=== PATIENT | male | born 2000 | race Asian ===

== ENCOUNTER 2021-04-15 16:31 | Inpatient (IN) ==
[2021-04-15 17:47] LABS: Hemoglobin 17.3 g/dL (14.0-18.0); Mean Corpuscular Hemoglobin 32.3 pg (25-34); Mean Corpuscular Hgb Conc 37.6 g/dL (32-36); Mean Corpuscular Volume 85.8 fL (80-100); Platelet Count 261 K/uL (130-400); RDW Coefficient of Variation 12.5 % (11.5-14.5); RDW Standard Deviation 38.9 fL (36.4-46.3); Red Blood Count 5.36 M/uL (4.7-6.1); White Blood Count 6.59 K/uL (4.8-10.8)
[2021-04-15 18:38] LABS: Appearance Urine Clear (Clear); Bacteria Urine Automated Negative (Negative); Bilirubin Urine Negative (Negative); Blood Urine 1+ (Negative); Color Urine Yellow; Epithelial Cell Urine Auto 0-5 /lpf (0-5); Glucose Urine UA 3+ (Negative); Ketones Urine 4+ (Negative); Leukocyte Esterase Urine Negative (Negative); Nitrite Urine Negative (Negative); Protein Urine 1+ (Negative); RBC Urine Automated 0-4 /hpf (0-4); Specific Gravity Urine 1.039 (1.000-1.030); Urobilinogen Urine Negative (Negative); WBC Urine Automated 0 /hpf (0-5)
[2021-04-15 18:55] LABS: Basophils # (auto) 0.03 K/uL (0-0.2); Basophils % (auto) 0.5 %; Eosinophils # (auto) 0.12 K/uL (0-0.5); Eosinophils % (auto) 1.8 %; Immature Granulocytes # (auto) 0.05 K/uL (0.00-0.02); Immature Granulocytes % (auto) 0.8 %; Lymphocytes # (auto) 3.31 K/uL (1.2-3.4); Lymphocytes % (auto) 50.2 %; Monocytes # (auto) 0.22 K/uL (0.11-0.59); Monocytes % (auto) 3.3 %; Neutrophils # (auto) 2.86 K/uL (1.4-6.5); Neutrophils % (auto) 43.4 %
[2021-04-15 19:17] LABS: Basophils # (auto) 0.04 K/uL (0-0.2); Basophils % (auto) 0.6 %; Eosinophils # (auto) 0.12 K/uL (0-0.5); Eosinophils % (auto) 1.9 %; Hemoglobin 16.5 g/dL (14.0-18.0); Immature Granulocytes # (auto) 0.05 K/uL (0.00-0.02); Immature Granulocytes % (auto) 0.8 %; Lymphocytes # (auto) 3.04 K/uL (1.2-3.4); Lymphocytes % (auto) 48.6 %; Mean Corpuscular Hemoglobin 32.5 pg (25-34); Mean Corpuscular Hgb Conc 37.5 g/dL (32-36); Mean Corpuscular Volume 86.6 fL (80-100); Mean Platelet Volume 11.3 fL (7.4-10.4); Monocytes # (auto) 0.32 K/uL (0.11-0.59); Monocytes % (auto) 5.1 %; Neutrophils # (auto) 2.69 K/uL (1.4-6.5); Nucleated RBC # (auto) 0.11 K/uL (0-0); Nucleated RBC % (auto) 1.8 %; Platelet Count 224 K/uL (130-400); RDW Coefficient of Variation 12.4 % (11.5-14.5); RDW Standard Deviation 39.2 fL (36.4-46.3); Red Blood Count 5.08 M/uL (4.7-6.1); White Blood Count 6.26 K/uL (4.8-10.8)
[2021-04-15 19:27] LABS: Base Excess VBG -7.9 mEq/L; Oxygen Saturation VBG 88.4 %; pH VBG 7.34 (7.36-7.41)
[2021-04-15 20:10] LABS: Alanine Aminotransferase 99 U/L (12-78); Albumin Globulin Ratio 0.8 (0.9-2); Albumin Level 3.4 gm/dl (3.4-5.0); Alkaline Phosphatase 84 U/L (45-117); Bilirubin,Total 0.8 mg/dl (0.2-1); Blood Urea Nitrogen 16 mg/dl (7-18); Calcium 8.6 mg/dl (8.5-10.1); Carbon Dioxide 15 mmol/L (21-32); Chloride 102 mmol/L (98-107); Chol HDL Ratio 6; Creatinine Clr Calc Pharmacy 169.9 ml/min; Est GFR (African American) 124.8 ml/min; Est GFR (Non-African American) 107.7 ml/min; Globulin 4.3 gm/dl (2.5-4.0); Glucose 367 mg/dl (70-99); HDL Cholesterol 14 mg/dl; Lipase 85 U/L (73-393); Sodium 139 mmol/L (136-145); Total Protein 7.7 gm/dl (6.4-8.2)
[2021-04-15 20:15] LABS: Triglycerides > 1000 mg/dl (0-150)
[2021-04-15 20:17] LABS: BUN Creatinine Ratio 15.9 (10-20)
[2021-04-15] MEDS ORDERED: GLUCOSE 10 TABS/TUBE PO PRN (20:21)
[2021-04-15] MEDS ORDERED: CARBOHYDRATES FOR HYPOGLYCEMIA PO PRN (20:21)
[2021-04-15] MEDS ORDERED: STAT IV Infusion **Titration per Protocol STA ×3 (20:21→21:27)
[2021-04-15] MEDS ORDERED: GLUCAGON FOR INJ 1 MG VIAL SQ PRN (20:21)
[2021-04-15] MEDS ORDERED: DEXTROSE 50% 50 ML SYRINGE IV PRN (20:21)
[2021-04-15] MEDS ORDERED: GLUCOSE 40% GEL 15 GM TUBE PO PRN (20:21)
[2021-04-15 20:58] LABS: iSTAT Creatinine 0.8 mg/dl (0.6-1.3); iSTAT Hemoglobin 16.3 g/dl (14.0-18.0); iSTAT Ionized Calcium 1.14 mmol/l (1.12-1.32)
[2021-04-15] MEDS ORDERED: INSULIN ASPART 100 UNITS/ML 3 ML PEN SC SCH (21:00)
[2021-04-15] MEDS ORDERED: POTASSIUM CHLORIDE 40 MEQ in SODIUM CHLORIDE 0.9% 1000ML 1,000 ML IV SCH (21:00)
--- NOTE | 2021-04-15 21:28 | History & Physical Report ---
Date of Service April 15, 2021 Assessment & Plan (1) Diabetes: Plan: Patient reports two weeks of polyuria/polydipsia/weakness/fatigue and unintentional weight loss. Also with blurry vision today. Elevated blood glucose on arrival to 491 with AGMA - Gap of 22, pH 7.34, HCO3=15 Serum Nbeunaluiu=773 4+ ketones present in urine Beta-hydroxybutyric acid unable to be resulted Presentation and laboratory findings most consistent with new onset DM and DKA -Admit to medical with telemetry -Insulin gtt per protocol with goal blood sugar 150-200 -IVF with 1/2 NSS, supplemental sugar and potassium as needed -Trend BMP, Mg, PO4 and VBG q 4 hours -Check HgbA1C -Diabetes education consultation appreciated (2) Hypertriglyceridemia: Plan: Triglycerides >1000. Blood specimen lipemic, some labs unable to be resulted. Possibly secondary to underlying diabetes -Will check TSH to assess for underlying thyroid disorder contributing to hyperlipidemia -UA with 1+ protein - will check random urine protein and creatinine to assess for degree of proteinuria - ?nephrotic syndrome in setting of hypertriglyceridemia -Repeat lipid panel ordered for AM - LDL to guide initiation of statin therapy -Encourage lifestyle modification - diet, exercise, weight loss and restriction of dietary fat Plan: F/E/N - IVF per DKA protocol - 1/2NSS at 200mL/hr, monitor BMP/Mg/PO4 and VBG q 4 hours, NPO for now Ppx - SCDs Code - Full per discussion with patient Dispo - Admit to medical with telemetry History of Present Illness Chief Complaint: DKA Primary Care Provider: NO PCP Katelin Goldsmith is a 21yo male with no significant past medical history presenting with DM, hypertriglyceridemia. Patient reports that over the last 2 weeks he has been very thirsty - drinking over 5L of water per day. He has been urinating more as well - reports waking 4-5 times per night to urinate. He has also had some early satiety, nausea, alteration in taste sensation, weakness, fatigue and unintentional weight loss of 12#. He also reports some blurry vision today. Patient denies fever, chills, headache, neck pain, chest pain, palpitations, cough, SOB, abdominal pain. He had diarrhea x 2 days earlier in the week which has resolved. Patient states that he had some testing done recently while home in [place] and was told that he had fatty infiltration of the liver. ER Course - Insulin gtt, KCl 40mEq x 2 Allergies Allergy/AdvReac Type Severity Reaction Status Date / Time shrimp Allergy Severe SHORT OF Verified 04/15/21 18:48 BREATH, HIVES Home Medications Medication Instructions Recorded Confirmed Type No Known Home Medications 04/15/21 04/15/21 History Past Med/Surg History Medical History (Updated 04/16/21 @ 03:25 by Jaci Palomino DO) No pertinent family history No pertinent past medical history Surgical History (Updated 04/15/21 @ 22:46 by Melchor Narvaez) No pertinent past surgical history Social History (Updated 04/16/21 @ 03:17 by Jaci Palomino DO) Smoking Status: Never smoker Hx Alcohol Use: No Hx Substance Use: No current occupational status: student Feels Safe at Home: Yes Review of Systems Review of Systems: All systems reviewed & are unremarkable except as noted in HPI & below Physical Exam Physical Exam: General: patient resting comfortably, NAD, non-toxic in appearance, AA&O x 4 Skin: warm, dry, intact, no rashes or lesions HEENT: NC/AT, PERRL, EOMI, anicteric sclera, conjunctiva without injection, external ear normal to inspection and nontender, nares patent, dry mucus membranes, dentition intact, no oropharyngeal lesions, neck supple, trachea midline, no LAD, no thyromegaly, no JVD Heart: +S1/S2, regular, tachycardic, no m/r/g Lungs: equal air entry bilaterally, no rales/rhonchi/wheezes Abd: +BS, soft, NT/ND, no masses/organomegaly/ascites Ext: warm, 2+ pulses in UE/LE bilaterally, no clubbing/cyanosis or edema Neuro: nonfocal, patient AA&O x 4, speech intact, no facial droop, moving all extremities on command with equal strength 5/5 Results & Data Results & Data ([facility]) Vital Signs (Past 12 Hours) Vital Signs Temp Pulse Pulse Resp BP BP Pulse Ox 04/15/21 20:57 106 H 17 138/99 98 04/15/21 18:08 114 H 18 167/105 H 96 04/15/21 17:03 36.0 C L 112 H 20 168/115 H 99 Laboratory Results Laboratory Results WBC 6.26 K/uL (4.8-10.8) 04/15/21 18:56 RBC 5.08 M/uL (4.7-6.1) 04/15/21 18:56 Hgb 16.5 g/dL (14.0-18.0) 04/15/21 18:56 POC Hgb 16.3 g/dl (14.0-18.0) 04/15/21 20:42 Hct 44.0 % (42-52) 04/15/21 18:56 POC Hct 48 % (42-52) 04/15/21 20:42 MCV 86.6 fL (80-100) 04/15/21 18:56 MCH 32.5 pg (25-34) 04/15/21 18:56 MCHC 37.5 g/dL (32-36) H 04/15/21 18:56 RDW Std Deviation 39.2 fL (36.4-46.3) 04/15/21 18:56 RDW Coeff of Kevin 12.4 % (11.5-14.5) 04/15/21 18:56 Plt Count 224 K/uL (130-400) 04/15/21 18:56 MPV 11.3 fL (7.4-10.4) H 04/15/21 18:56 Immature Gran % (Auto) 0.8 % 04/15/21 18:56 Neut % (Auto) 43.0 % 04/15/21 18:56 Lymph % (Auto) 48.6 % 04/15/21 18:56 [place] % (Auto) 5.1 % 04/15/21 18:56 Eos % (Auto) 1.9 % 04/15/21 18:56 Baso % (Auto) 0.6 % 04/15/21 18:56 Neut # (Auto) 2.69 K/uL (1.4-6.5) 04/15/21 18:56 Lymph # (Auto) 3.04 K/uL (1.2-3.4) 04/15/21 18:56 [place] # (Auto) 0.32 K/uL (0.11-0.59) 04/15/21 18:56 Eos # (Auto) 0.12 K/uL (0-0.5) 04/15/21 18:56 Baso # (Auto) 0.04 K/uL (0-0.2) 04/15/21 18:56 Immature Gran # (Auto) 0.05 K/uL (0.00-0.02) H 04/15/21 18:56 Absolute Nucleated RBC 0.11 K/uL (0-0) H 04/15/21 18:56 Nucleated RBC % (auto) 1.8 % 04/15/21 18:56 PT Cancelled 04/15/21 17:27 INR Cancelled 04/15/21 17:27 APTT Cancelled 04/15/21 17:27 PTT Ratio Cancelled 04/15/21 17:27 VBG pH 7.35 (7.36-7.41) L 04/16/21 00:25 VBG pCO2 31 mmHg (38-50) L 04/15/21 18:56 VBG pO2 55 mmHg 04/15/21 18:56 VBG HCO3 16 mmol/L 04/15/21 18:56 VBG O2 Saturation 88.4 % 04/15/21 18:56 VBG Base Excess -7.9 mEq/L 04/15/21 18:56 Barometric Pressure 734.2 mm/Hg 04/15/21 18:56 POC Sodium 137 mmol/L (135-144) 04/15/21 20:42 Sodium 138 mmol/L (136-145) 04/16/21 00:20 POC Potassium 4.0 mmol/L (3.3-5.0) 04/15/21 20:42 Potassium 3.4 mmol/L (3.5-5.1) L 04/16/21 00:20 POC Chloride 106 mmol/L (101-112) 04/15/21 20:42 Chloride 108 mmol/L (98-107) H 04/16/21 00:20 Carbon Dioxide 17 mmol/L (21-32) L 04/16/21 00:20 POC Total CO2 18 mmol/L (24-31) L 04/15/21 20:42 Anion Gap 13.0 (3-11) H 04/16/21 00:20 POC Anion Gap 18.0 mmol/L (16-25) 04/15/21 20:42 POC BUN 20 mg/dl (7-18) H 04/15/21 20:42 BUN 14 mg/dl (7-18) 04/16/21 00:20 Creatinine 1.03 mg/dl (0.6-1.4) 04/16/21 00:20 POC Creatinine 0.8 mg/dl (0.6-1.3) 04/15/21 20:42 Est Cr Clr Drug Dosing 163.3 ml/min 04/16/21 00:20 Est GFR ( Amer) 119.0 ml/min 04/16/21 00:20 Est GFR (Non-Af Amer) 102.6 ml/min 04/16/21 00:20 BUN/Creatinine Ratio 13.9 (10-20) 04/16/21 00:20 Glucose 221 mg/dl (70-99) H 04/16/21 00:20 POC Glucose 227 mg/dl (70-99) H 04/16/21 03:04 POC Glucose (other) 328 mg/dl (70-99) H 04/15/21 20:42 Osmolality 313 mOsm/kg (280-300) H 04/15/21 18:58 Calcium 8.9 mg/dl (8.5-10.1) 04/16/21 00:20 POC Ioniz Calcium New 1.14 mmol/l (1.12-1.32) 04/15/21 20:42 Phosphorus 2.8 mg/dl (2.5-4.9) 04/16/21 00:20 Magnesium 1.9 mg/dl (1.8-2.4) 04/16/21 00:20 Total Bilirubin 0.8 mg/dl (0.2-1) 04/15/21 18:56 Direct Bilirubin mg/dl (0-0.2) 04/15/21 18:56 AST U/L (15-37) 04/15/21 18:56 ALT 99 U/L (12-78) H 04/15/21 18:56 Alkaline Phosphatase 84 U/L (45-117) 04/15/21 18:56 Total Protein 7.7 gm/dl (6.4-8.2) 04/15/21 18:56 Albumin 3.4 gm/dl (3.4-5.0) 04/15/21 18:56 Globulin 4.3 gm/dl (2.5-4.0) H 04/15/21 18:56 Albumin/Globulin Ratio 0.8 (0.9-2) L 04/15/21 18:56 Triglycerides > 1000 mg/dl (0-150) H 04/15/21 18:56 Cholesterol mg/dl (0-200) 04/15/21 18:56 LDL Cholesterol, Calc mg/dl 04/15/21 18:56 VLDL Cholesterol, Calc mg/dl 04/15/21 18:56 HDL Cholesterol 14 mg/dl 04/15/21 18:56 Cholesterol/HDL Ratio 6 04/15/21 18:56 Lipase 85 U/L (73-393) 04/15/21 18:56 Beta-Hydroxybutyric Acd TNP 04/16/21 00:20 Specimen Hemolysis 04/16/21 00:20 Urine Color Yellow 04/15/21 17:27 Urine Appearance Clear (Clear) 04/15/21 17:27 Urine pH 5.0 (4.5-7.5) 04/15/21 17:27 Ur Specific [place] 1.039 (1.000-1.030) H 04/15/21 17:27 Urine Protein 1+ (Negative) H 04/15/21 17:27 Urine Glucose (UA) 3+ (Negative) H 04/15/21 17:27 Urine Ketones 4+ (Negative) H 04/15/21 17:27 Urine Blood 1+ (Negative) H 04/15/21 17:27 Urine Nitrite Negative (Negative) 04/15/21 17:27 Urine Bilirubin Negative (Negative) 04/15/21 17:27 Urine Urobilinogen Negative (Negative) 04/15/21 17:27 Ur Leukocyte Esterase Negative (Negative) 04/15/21 17:27 Urine WBC (Auto) 0 /hpf (0-5) 04/15/21 17:27 Urine RBC (Auto) 0-4 /hpf (0-4) 04/15/21 17: U Hyaline Cast (Auto) 1-5 /lpf (0-5) 04/15/21 17:27 U Epithel Cells (Auto) 0-5 /lpf (0-5) 04/15/21 17:27 Urine Bacteria (Auto) Negative (Negative) 04/15/21 17:27 COVID-19 Eval Order Covid19 at [facility] 04/15/21 17:24 SARS-CoV-2 (PCR) NEGATIVE (Negative) 04/15/21 17:24 ECG Additional Comments: EKG wtih ST at 110, normal axis, TE=612, QRS=96, ROu=293, no acute ischemic changes, no LVH Code Status & VTE Plan VTE Prophylaxis Plan VTE Prophylaxis will be ordered: Yes PG Care Time/CCT Total # of Minutes Spent Total Time Spent with Patient: Total time spent is greater than 50% in coordination of care (as documented) at patient's floor/unit and/or counseling patient: Coding Level of Care Code 95999 Initial Inpt Care Lvl 2 Diagnoses Diabetes E11.9 Hypertriglyceridemia E78.1
[2021-04-15] MEDS: INSULIN REGULAR 250 UNITS in SODIUM CHLORIDE 0.9% 247.5 ML IV SCH (21:39)
--- NOTE | 2021-04-15 22:44 | Emergency Department Note ---
History of Present Illness General Chief complaint: Hyperglycemia Stated complaint: FREQUENT URINATION, GAINED 76LBS IN 3 WKS Time Seen by Provider: 04/15/21 18:11 History of Present Illness Provider complaint: Fatigue polyuria concern for diabetes Onset (ago): week(s) 2 Associated symptoms: + weakness; no chest pain, no cough, no fever/chills, no headaches, no nausea/vomiting or no shortness of breath 21-year-old male presents emergency department for weakness, polyuria, fatigue, and increased thirst for the last 2 weeks. Patient states he googled his symptoms and became concerned he might have diabetes. Patient states that he has no chest pain difficulty breathing abdominal pain nausea vomiting or diarrhea. Patient states he has never been diagnosed with diabetes in the past. Patient states he does not exercise much and does not eat healthy. Home Medications Medication Instructions Recorded Confirmed Type No Known Home Medications 04/15/21 04/15/21 History Allergies Allergy/AdvReac Type Severity Reaction Status Date / Time shrimp Allergy Severe SHORT OF Verified 04/15/21 18:48 BREATH, HIVES Past Med/Surg History Medical History (Updated 04/15/21 @ 22:46 by Melchor Narvaez) No pertinent family history No pertinent past medical history Surgical History (Updated 04/15/21 @ 22:46 by Melchor Narvaez) No pertinent past surgical history Social History Smoking Status: Never smoker Feels Safe at Home: Yes Review of Systems A total of 10 systems reviewed and were otherwise negative Physical Exam Vital Signs Vital Signs - 24 hr 04/15/21 17:03 04/15/21 18:08 04/15/21 20:57 Temperature 36.0 C L Temperature Source Temporal Artery Scan Oral Pulse Rate 112 H Pulse Rate [Finger] 114 H 106 H Pulse Rhythm Regular Pulse Strength Normal Respiratory Rate 20 18 17 Respiratory Effort / Characteristics Non-Labored Spontaneous Non-Labored Non-Labored Respiratory Depth Normal Normal Normal Respiratory Pattern Regular Regular Regular Blood Pressure 168/115 H Blood Pressure [Right Arm] 167/105 H 138/99 Blood Pressure Mean 132 Blood Pressure Mean [Right Arm] 125 112 Blood Pressure Position Sitting Blood Pressure Position [Right Arm] Lying Lying Pulse Oximetry 99 96 98 Oxygen Delivery Method Room Air Room Air Room Air Sepsis Recent Fever Within 48 Hours No Sepsis New/Unexplained Change in Mental Status No Sepsis Action Taken by Nursing No Action Required Physical Exam GENERAL: He is oriented to person, place, and time. He appears well-developed and well-nourished. He does not appear distressed. HENT: Exam performed. - Head: Normocephalic and atraumatic. - Right Ear: External ear normal. No mastoid tenderness. - Left Ear: External ear normal. No mastoid tenderness. - Mouth/Throat: The oropharynx is clear and moist. No trismus in the jaw. No dental abscesses or uvula swelling. No oropharyngeal exudate or tonsillar abscesses. EYES: Conjunctivae and EOM are normal. Pupils are equal, round, and reactive to light. Right eye exhibits no discharge. Left eye exhibits no discharge. No scleral icterus. NECK: Normal range of motion. Neck supple. No JVD present. No spinous process tenderness present. No carotid bruit present. No rigidity. No tracheal deviation and normal range of motion present. No Brudzinski's sign and no Kernig's sign noted. CV: Normal rate, regular rhythm, normal heart sounds and intact distal pulses. There is no peripheral edema. Palpable radial pulses bue. PULM/CHEST: Effort normal and breath sounds normal. No respiratory distress. No stridor. He has no wheezes. He has no rales. - Chest Wall: He exhibits no tenderness. ABD: The abdomen is soft. Bowel sounds are normal. He has no distension. No mass is present. There is no tenderness. There is no rebound, no guarding, no Carrington's sign and no tenderness at McBurney's point. Rovsig negative. MUSC/SKEL: Normal range of motion. There is no peripheral edema, tenderness or deformity. LYMPH: No cervical adenopathy. NEURO: He is alert and oriented to person, place, and time. He has normal strength. No cranial nerve deficit or sensory deficit. Coordination and gait normal. GCS eye subscore is 4. GCS verbal subscore is 5. GCS motor subscore is 6. Cerebellar tests wnl. SKIN: Skin is warm and dry. He is not diaphoretic. PSYCH: He has a normal mood and affect. Behavior is normal. Judgment and thought content normal. Course Course 1810: The patient was evaluated in room B11. A complete history and physical exam was performed Cardiac monitoring: An order was placed for continuous cardiac monitoring. The monitor shows a rate of 110 with sinus tachycardia rhythm 1900: Vital signs stable. Received a call from charge nurse at the patient's blood work according to the lab is too lipophilic and they are unable to run the labs. Lab states that they can run the labs off of ABG syringes which will be conducted. 2100: Vital signs stable. Labs show a glucose of 367 with a anion gap of 22. Patient's triglycerides are greater 1000. Lipase level is within normal limits. Anion gap is 22. Patient be started on insulin drip 0.1 units/kg/h. Potassium was hemolyzed. I-STAT potassium showed 4. Patient also started on normal saline with 40 mill equivalents of KCl at 100 cc/h. [facility] Administered Medications Insulin Human Regular 250 (units/ Sodium Chloride) 250 mls @ 10 mls/hr IV .Q24H [facility]; Protocol Stop: 05/15/21 20:29 Last Admin: 04/15/21 21:39 Dose: 10 units/hr, 10 mls/hr Documented by: [id number] Cosigned by: [id number] Potassium Chloride 40 meq/ (Sodium Chloride) 1,020 mls @ 100 mls/hr IV .[id number] [facility] Stop: 04/16/21 07:11 Last Admin: 04/15/21 21:39 Dose: 100 mls/hr Documented by: [id number] Critical Care Time Critical Care Time: Yes Total Critical Care Time: 52 I have personally spent greater than 52 minutes of critical care time in the direct management of this patient. This includes bedside care, interpretation of diagnostic studies, and testing, discussion with consultants, patient, and family members, and other required patient management activities. This 52 minutes is in excess of all separately billable procedures. Medical Decision Making Laboratory Data Result diagrams: 04/15/21 18:56 04/15/21 18:56 Lab Results 04/15/21 04/15/21 04/15/21 Range/Units 17:09 17:24 17:24 WBC (4.8-10.8) K/uL RBC (4.7-6.1) M/uL Hgb (14.0-18.0) g/dL POC Hgb (14.0-18.0) g/dl Hct (42-52) % POC Hct (42-52) % MCV (80-100) fL MCH (25-34) pg MCHC (32-36) g/dL RDW Std Deviation (36.4-46.3) fL RDW Coeff of Kevin (11.5-14.5) % Plt Count (130-400) K/uL MPV (7.4-10.4) fL Immature Gran % (Auto) % Neut % (Auto) % Lymph % (Auto) % [place] % (Auto) % Eos % (Auto) % Baso % (Auto) % Neut # (Auto) (1.4-6.5) K/uL Lymph # (Auto) (1.2-3.4) K/uL [place] # (Auto) (0.11-0.59) K/uL Eos # (Auto) (0-0.5) K/uL Baso # (Auto) (0-0.2) K/uL Immature Gran # (Auto) (0.00-0.02) K/uL Absolute Nucleated RBC (0-0) K/uL Nucleated RBC % (auto) % PT INR APTT PTT Ratio VBG pH (7.36-7.41) VBG pCO2 (38-50) mmHg VBG pO2 mmHg VBG HCO3 mmol/L VBG O2 Saturation % VBG Base Excess mEq/L Barometric Pressure mm/Hg POC Sodium (135-144) mmol/L Sodium POC Potassium (3.3-5.0) mmol/L Potassium POC Chloride (101-112) mmol/L Chloride Carbon Dioxide POC Total CO2 (24-31) mmol/L Anion Gap POC Anion Gap (16-25) mmol/L POC BUN (7-18) mg/dl BUN Creatinine POC Creatinine (0.6-1.3) mg/dl Est Cr Clr Drug Dosing Est GFR ( Amer) Est GFR (Non-Af Amer) BUN/Creatinine Ratio Glucose POC Glucose 491 H* (70-99) mg/dl POC Glucose (other) (70-99) mg/dl Osmolality (280-300) mOsm/kg Calcium POC Ioniz Calcium New (1.12-1.32) mmol/l Total Bilirubin Direct Bilirubin (0-0.2) mg/dl AST ALT Alkaline Phosphatase Total Protein Albumin Globulin Albumin/Globulin Ratio Triglycerides (0-150) mg/dl Cholesterol (0-200) mg/dl LDL Cholesterol, Calc mg/dl VLDL Cholesterol, Calc mg/dl HDL Cholesterol mg/dl Cholesterol/HDL Ratio Lipase (73-393) U/L Beta-Hydroxybutyric Acd (0.2-2.81) mg/dl Urine Color Urine Appearance (Clear) Urine pH (4.5-7.5) Ur Specific [place] (1.000-1.030) Urine Protein (Negative) Urine Glucose (UA) (Negative) Urine Ketones (Negative) Urine Blood (Negative) Urine Nitrite (Negative) Urine Bilirubin (Negative) Urine Urobilinogen (Negative) Ur Leukocyte Esterase (Negative) Urine WBC (Auto) (0-5) /hpf Urine RBC (Auto) (0-4) /hpf U Hyaline Cast (Auto) (0-5) /lpf U Epithel Cells (Auto) (0-5) /lpf Urine Bacteria (Auto) (Negative) COVID-19 Eval Order Covid19 at [facility] SARS-CoV-2 (PCR) NEGATIVE (Negative) 04/15/21 04/15/21 04/15/21 Range/Units 17:27 17:27 17:27 WBC 6.59 (4.8-10.8) K/uL RBC 5.36 (4.7-6.1) M/uL Hgb 17.3 (14.0-18.0) g/dL POC Hgb (14.0-18.0) g/dl Hct 46.0 (42-52) % POC Hct (42-52) % MCV 85.8 (80-100) fL MCH 32.3 (25-34) pg MCHC 37.6 H (32-36) g/dL RDW Std Deviation 38.9 (36.4-46.3) fL RDW Coeff of Kevin 12.5 (11.5-14.5) % Plt Count 261 (130-400) K/uL MPV 11.0 H (7.4-10.4) fL Immature Gran % (Auto) 0.8 % Neut % (Auto) 43.4 % Lymph % (Auto) 50.2 % [place] % (Auto) 3.3 % Eos % (Auto) 1.8 % Baso % (Auto) 0.5 % Neut # (Auto) 2.86 (1.4-6.5) K/uL Lymph # (Auto) 3.31 (1.2-3.4) K/uL [place] # (Auto) 0.22 (0.11-0.59) K/uL Eos # (Auto) 0.12 (0-0.5) K/uL Baso # (Auto) 0.03 (0-0.2) K/uL Immature Gran # (Auto) 0.05 H (0.00-0.02) K/uL Absolute Nucleated RBC (0-0) K/uL Nucleated RBC % (auto) % PT Cancelled INR Cancelled APTT Cancelled PTT Ratio Cancelled VBG pH (7.36-7.41) VBG pCO2 (38-50) mmHg VBG pO2 mmHg VBG HCO3 mmol/L VBG O2 Saturation % VBG Base Excess mEq/L Barometric Pressure mm/Hg POC Sodium (135-144) mmol/L Sodium Cancelled POC Potassium (3.3-5.0) mmol/L Potassium Cancelled POC Chloride (101-112) mmol/L Chloride Cancelled Carbon Dioxide Cancelled POC Total CO2 (24-31) mmol/L Anion Gap Cancelled POC Anion Gap (16-25) mmol/L POC BUN (7-18) mg/dl BUN Cancelled Creatinine Cancelled POC Creatinine (0.6-1.3) mg/dl Est Cr Clr Drug Dosing Cancelled Est GFR ( Amer) Cancelled Est GFR (Non-Af Amer) Cancelled BUN/Creatinine Ratio Cancelled Glucose Cancelled POC Glucose (70-99) mg/dl POC Glucose (other) (70-99) mg/dl Osmolality (280-300) mOsm/kg Calcium Cancelled POC Ioniz Calcium New (1.12-1.32) mmol/l Total Bilirubin Cancelled Direct Bilirubin (0-0.2) mg/dl AST Cancelled ALT Cancelled Alkaline Phosphatase Cancelled Total Protein Cancelled Albumin Cancelled Globulin Cancelled Albumin/Globulin Ratio Cancelled Triglycerides (0-150) mg/dl Cholesterol (0-200) mg/dl LDL Cholesterol, Calc mg/dl VLDL Cholesterol, Calc mg/dl HDL Cholesterol mg/dl Cholesterol/HDL Ratio Lipase (73-393) U/L Beta-Hydroxybutyric Acd (0.2-2.81) mg/dl Urine Color Urine Appearance (Clear) Urine pH (4.5-7.5) Ur Specific [place] (1.000-1.030) Urine Protein (Negative) Urine Glucose (UA) (Negative) Urine Ketones (Negative) Urine Blood (Negative) Urine Nitrite (Negative) Urine Bilirubin (Negative) Urine Urobilinogen (Negative) Ur Leukocyte Esterase (Negative) Urine WBC (Auto) (0-5) /hpf Urine RBC (Auto) (0-4) /hpf U Hyaline Cast (Auto) (0-5) /lpf U Epithel Cells (Auto) (0-5) /lpf Urine Bacteria (Auto) (Negative) COVID-19 Eval Order SARS-CoV-2 (PCR) (Negative) 04/15/21 04/15/21 04/15/21 Range/Units 17:27 18:56 18:56 WBC 6.26 (4.8-10.8) K/uL RBC 5.08 (4.7-6.1) M/uL Hgb 16.5 (14.0-18.0) g/dL POC Hgb (14.0-18.0) g/dl Hct 44.0 (42-52) % POC Hct (42-52) % MCV 86.6 (80-100) fL MCH 32.5 (25-34) pg MCHC 37.5 H (32-36) g/dL RDW Std Deviation 39.2 (36.4-46.3) fL RDW Coeff of Kevin 12.4 (11.5-14.5) % Plt Count 224 (130-400) K/uL MPV 11.3 H (7.4-10.4) fL Immature Gran % (Auto) 0.8 % Neut % (Auto) 43.0 % Lymph % (Auto) 48.6 % [place] % (Auto) 5.1 % Eos % (Auto) 1.9 % Baso % (Auto) 0.6 % Neut # (Auto) 2.69 (1.4-6.5) K/uL Lymph # (Auto) 3.04 (1.2-3.4) K/uL [place] # (Auto) 0.32 (0.11-0.59) K/uL Eos # (Auto) 0.12 (0-0.5) K/uL Baso # (Auto) 0.04 (0-0.2) K/uL Immature Gran # (Auto) 0.05 H (0.00-0.02) K/uL Absolute Nucleated RBC 0.11 H (0-0) K/uL Nucleated RBC % (auto) 1.8 % PT INR APTT PTT Ratio VBG pH (7.36-7.41) VBG pCO2 (38-50) mmHg VBG pO2 mmHg VBG HCO3 mmol/L VBG O2 Saturation % VBG Base Excess mEq/L Barometric Pressure mm/Hg POC Sodium (135-144) mmol/L Sodium 139 POC Potassium (3.3-5.0) mmol/L Potassium POC Chloride (101-112) mmol/L Chloride 102 Carbon Dioxide 15 L POC Total CO2 (24-31) mmol/L Anion Gap 22.0 H POC Anion Gap (16-25) mmol/L POC BUN (7-18) mg/dl BUN 16 Creatinine 0.99 POC Creatinine (0.6-1.3) mg/dl Est Cr Clr Drug Dosing 169.9 Est GFR ( Amer) 124.8 Est GFR (Non-Af Amer) 107.7 BUN/Creatinine Ratio 15.9 Glucose 367 H* POC Glucose (70-99) mg/dl POC Glucose (other) (70-99) mg/dl Osmolality (280-300) mOsm/kg Calcium 8.6 POC Ioniz Calcium New (1.12-1.32) mmol/l Total Bilirubin 0.8 Direct Bilirubin (0-0.2) mg/dl AST ALT 99 H Alkaline Phosphatase 84 Total Protein 7.7 Albumin 3.4 Globulin 4.3 H Albumin/Globulin Ratio 0.8 L Triglycerides > 1000 H (0-150) mg/dl Cholesterol (0-200) mg/dl LDL Cholesterol, Calc mg/dl VLDL Cholesterol, Calc mg/dl HDL Cholesterol 14 mg/dl Cholesterol/HDL Ratio 6 Lipase 85 (73-393) U/L Beta-Hydroxybutyric Acd (0.2-2.81) mg/dl Urine Color Yellow Urine Appearance Clear (Clear) Urine pH 5.0 (4.5-7.5) Ur Specific [place] 1.039 H (1.000-1.030) Urine Protein 1+ H (Negative) Urine Glucose (UA) 3+ H (Negative) Urine Ketones 4+ H (Negative) Urine Blood 1+ H (Negative) Urine Nitrite Negative (Negative) Urine Bilirubin Negative (Negative) Urine Urobilinogen Negative (Negative) Ur Leukocyte Esterase Negative (Negative) Urine WBC (Auto) 0 (0-5) /hpf Urine RBC (Auto) 0-4 (0-4) /hpf U Hyaline Cast (Auto) 1-5 (0-5) /lpf U Epithel Cells (Auto) 0-5 (0-5) /lpf Urine Bacteria (Auto) Negative (Negative) COVID-19 Eval Order SARS-CoV-2 (PCR) (Negative) 04/15/21 04/15/21 04/15/21 Range/Units 18:56 18:58 20:42 WBC (4.8-10.8) K/uL RBC (4.7-6.1) M/uL Hgb (14.0-18.0) g/dL POC Hgb 16.3 (14.0-18.0) g/dl Hct (42-52) % POC Hct 48 (42-52) % MCV (80-100) fL MCH (25-34) pg MCHC (32-36) g/dL RDW Std Deviation (36.4-46.3) fL RDW Coeff of Kevin (11.5-14.5) % Plt Count (130-400) K/uL MPV (7.4-10.4) fL Immature Gran % (Auto) % Neut % (Auto) % Lymph % (Auto) % [place] % (Auto) % Eos % (Auto) % Baso % (Auto) % Neut # (Auto) (1.4-6.5) K/uL Lymph # (Auto) (1.2-3.4) K/uL [place] # (Auto) (0.11-0.59) K/uL Eos # (Auto) (0-0.5) K/uL Baso # (Auto) (0-0.2) K/uL Immature Gran # (Auto) (0.00-0.02) K/uL Absolute Nucleated RBC (0-0) K/uL Nucleated RBC % (auto) % PT INR APTT PTT Ratio VBG pH 7.34 L (7.36-7.41) VBG pCO2 31 L (38-50) mmHg VBG pO2 55 mmHg VBG HCO3 16 mmol/L VBG O2 Saturation 88.4 % VBG Base Excess -7.9 mEq/L Barometric Pressure 734.2 mm/Hg POC Sodium 137 (135-144) mmol/L Sodium POC Potassium 4.0 (3.3-5.0) mmol/L Potassium POC Chloride 106 (101-112) mmol/L Chloride Carbon Dioxide POC Total CO2 18 L (24-31) mmol/L Anion Gap POC Anion Gap 18.0 (16-25) mmol/L POC BUN 20 H (7-18) mg/dl BUN Creatinine POC Creatinine 0.8 (0.6-1.3) mg/dl Est Cr Clr Drug Dosing Est GFR ( Amer) Est GFR (Non-Af Amer) BUN/Creatinine Ratio Glucose POC Glucose (70-99) mg/dl POC Glucose (other) 328 H (70-99) mg/dl Osmolality 313 H (280-300) mOsm/kg Calcium POC Ioniz Calcium New 1.14 (1.12-1.32) mmol/l Total Bilirubin Direct Bilirubin (0-0.2) mg/dl AST ALT Alkaline Phosphatase Total Protein Albumin Globulin Albumin/Globulin Ratio Triglycerides (0-150) mg/dl Cholesterol (0-200) mg/dl LDL Cholesterol, Calc mg/dl VLDL Cholesterol, Calc mg/dl HDL Cholesterol mg/dl Cholesterol/HDL Ratio Lipase (73-393) U/L Beta-Hydroxybutyric Acd (0.2-2.81) mg/dl Urine Color Urine Appearance (Clear) Urine pH (4.5-7.5) Ur Specific [place] (1.000-1.030) Urine Protein (Negative) Urine Glucose (UA) (Negative) Urine Ketones (Negative) Urine Blood (Negative) Urine Nitrite (Negative) Urine Bilirubin (Negative) Urine Urobilinogen (Negative) Ur Leukocyte Esterase (Negative) Urine WBC (Auto) (0-5) /hpf Urine RBC (Auto) (0-4) /hpf U Hyaline Cast (Auto) (0-5) /lpf U Epithel Cells (Auto) (0-5) /lpf Urine Bacteria (Auto) (Negative) COVID-19 Eval Order SARS-CoV-2 (PCR) (Negative) ECG Data Indication: + weakness Rate (beats per minute): 110 Rhythm: + sinus tachycardia ECG Intervals/blocks: + Normal QRS, + Normal [place] and + Normal QT-c ECG ST segments: + Normal ST segments [facility] Narrative 181: The patient was evaluated in room B11. A complete history and physical exam was performed Cardiac monitoring: An order was placed for continuous cardiac monitoring. The monitor shows a rate of 110 with sinus tachycardia rhythm 1900: Vital signs stable. Received a call from charge nurse at the patient's blood work according to the lab is too lipophilic and they are unable to run the labs. Lab states that they can run the labs off of ABG syringes which will be conducted. 2100: Vital signs stable. Labs show a glucose of 367 with a anion gap of 22. Patient's triglycerides are greater 1000. Lipase level is within normal limits. Anion gap is 22. Patient be started on insulin drip 0.1 units/kg/h. Potassium was hemolyzed. I-STAT potassium showed 4. Patient also started on normal saline with 40 mill equivalents of KCl at 100 cc/h. [facility] Impression & Plan DKA (diabetic ketoacidosis), Hypertriglyceridemia Discharge Plan Visit Data Chief Complaint: Hyperglycemia Stated Complaint: FREQUENT URINATION, GAINED 76LBS IN 3 WKS ED Provider: Melchor Narvaez Patient Disposition: Admitted As Inpatient Prescriptions Prescriptions: No Action No Known Home Medications RF: 0
[2021-04-16] MEDS ORDERED: ONDANSETRON INJ 2 MG/ML 2 ML VIAL IV PRN (00:33)
[2021-04-16] MEDS ORDERED: DKA GOAL RANGE 150-250 mg/dl ONE (00:33)
[2021-04-16] MEDS ORDERED: INSULIN REGULAR 250 UNITS in SODIUM CHLORIDE 0.9% 247.5 ML IV SCH (00:33)
[2021-04-16] MEDS ORDERED: ACETAMINOPHEN 325 MG TAB PO PRN (00:33)
[2021-04-16] MEDS ORDERED: SODIUM CHLORIDE 0.45 % 1,000 ML IV SCH (01:00)
[2021-04-16] MEDS: INSULIN REGULAR 250 UNITS in SODIUM CHLORIDE 0.9% 247.5 ML IV SCH (01:02)
[2021-04-16] MEDS ORDERED: DEXTROSE 50% 50 ML SYRINGE IV PRN (01:15)
[2021-04-16] MEDS ORDERED: GLUCOSE 40% GEL 15 GM TUBE PO PRN (01:15)
[2021-04-16] MEDS ORDERED: CARBOHYDRATES FOR HYPOGLYCEMIA PO PRN (01:15)
[2021-04-16] MEDS ORDERED: GLUCAGON FOR INJ 1 MG VIAL IM PRN (01:15)
[2021-04-16] MEDS ORDERED: GLUCOSE 10 TABS/TUBE PO PRN (01:15)
[2021-04-16 01:27] LABS: BUN Creatinine Ratio 13.9 (10-20); Blood Urea Nitrogen 14 mg/dl (7-18); Calcium 8.9 mg/dl (8.5-10.1); Carbon Dioxide 17 mmol/L (21-32); Chloride 108 mmol/L (98-107); Creatinine Clr Calc Pharmacy 163.3 ml/min; Est GFR (Non-African American) 102.6 ml/min; Glucose 221 mg/dl (70-99); Magnesium 1.9 mg/dl (1.8-2.4); Phosphorus 2.8 mg/dl (2.5-4.9); Potassium 3.4 mmol/L (3.5-5.1); Sodium 138 mmol/L (136-145)
[2021-04-16] MEDS: POTASSIUM CHLORIDE 40 MEQ in D5W AND 1/2NSS 1,000 ML IV SCH ×3 (01:45→13:07)
[2021-04-16] MEDS ORDERED: PENDING D5 1/2NS+40mEq KCL IVF SCH (02:00)
[2021-04-16] MEDS ORDERED: PENDING 1/2NSS+40mEq KCL IVF SCH (02:00)
[2021-04-16 04:49] LABS: Creatinine Urine Random 39.1 mg/dl; Total Protein Urine Random 49.2 mg/dl (0-11.9)
[2021-04-16 05:08] LABS: BUN Creatinine Ratio 13.3 (10-20); Calcium 8.4 mg/dl (8.5-10.1); Creatinine Clr Calc Pharmacy 171.6 ml/min; Est GFR (African American) 126.3 ml/min
[2021-04-16 05:23] LABS: Phosphorus 3.1 mg/dl (2.5-4.9); Thyroid Stimulating Hormone 5.1 uIu/ml (0.300-4.500)
[2021-04-16 05:34] LABS: Magnesium 1.9 mg/dl (1.8-2.4); Potassium 3.4 mmol/L (3.5-5.1)
[2021-04-16 05:50] LABS: T4 Free Thyroxine 1.15 ng/dl (0.8-1.6)
[2021-04-16] MEDS ORDERED: POTASSIUM CHLORIDE / WTR 10 MEQ/100 ML PLCT IV SCH (06:00)
[2021-04-16] MEDS: POTASSIUM CHLORIDE PWD 20 MEQ PACK PO SCH ×3 (06:24→10:58)
[2021-04-16 06:49] LABS: Estimated Average Glucose 292 mg/dl; Hemoglobin A1C 11.8 % (4.5-5.6)
[2021-04-16] MEDS: INSULIN ASPART 100 UNITS/ML VIAL SC SCH ×5 (08:13→20:39)
[2021-04-16 09:16] LABS: BUN Creatinine Ratio 12.1 (10-20); Calcium 8.2 mg/dl (8.5-10.1); Creatinine Clr Calc Pharmacy 180.9 ml/min; Est GFR (African American) 134.6 ml/min; Est GFR (Non-African American) 116.1 ml/min; Phosphorus 3.1 mg/dl (2.5-4.9)
--- NOTE | 2021-04-16 09:16 | Electrocardiogram Report ---
Test Reason : Blood Pressure : / mmHG Vent. Rate : 110 BPM Atrial Rate : 110 BPM P-R Int : 152 ms QRS Dur : 096 ms QT Int : 316 ms P-R-T Axes : 047 072 019 degrees QTc Int : 427 ms Sinus tachycardia Otherwise normal ECG No previous ECGs available Confirmed by Diego Ramírez ([id number]) on 04/16/2021 9:16:15 AM Referred By: REFERRED SELF Confirmed By:Diego Ramírez
[2021-04-16] MEDS ORDERED: PHARMACY GLYCEMIC MGMT CONSULT PRN (11:42)
--- NOTE | 2021-04-16 11:44 | Hospitalist Progress Note ---
Date of Service April 16, 2021 Assessment & Plan (1) Diabetes: Plan: Patient reports two weeks of polyuria/polydipsia/weakness/fatigue and unintentional weight loss. Also with blurry vision on admission elevated blood glucose on arrival to 491 with AGMA - Gap of 22, pH 7.34, HCO3=15 Serum Wrovqxzbvh=665 4+ ketones present in urine Beta-hydroxybutyric acid unable to be resulted due to hypertriglyceridemia Presentation and laboratory findings most consistent with new onset DM and DKA -Insulin gtt per protocol with transition to basal bolus insulin by diabetic glycemic consult -IVF with 1/2 NSS, supplemental sugar and potassium as needed -Check HgbA1C 11.8 -Diabetes education consultation appreciated (2) Hypertriglyceridemia: Plan: Triglycerides >1000. Blood specimen lipemic, some labs unable to be resulted. Possibly secondary to underlying diabetes -Patient does not feel there is any family history of lipid disorders, thyroid profile is normal. -Encourage lifestyle modification - diet, exercise, weight loss and restriction of dietary fat Plan: Ppx - SCDs Code - Full per discussion with patient Admission and Anticipated Discharge Date Admission Date: April 15, 2021 Subjective Patient has no complaints or problems his abdominal pain is subsided. He is hungry and wishes to eat some food. We discussed the fact that he is likely going to require medication for his insulin intolerance or diabetes and most likely is a type I diabetic. art educator is not yet been around we did discuss with glycemic pharmacy to transition him to basal bolus insulin. Review of Systems Review of Systems: Mild distress and fatigue no headache, no visual changes no speech or swallowing issues no chest pain, pressure or palpitations no shortness of breath, cough or wheezes resolved abdominal pain, nausea or vomiting, diarrhea or constipation no dysuria, hematuria or frequency no focal joint pain or swelling no back pain, CVA tenderness or radicular pain no bruising, bleeding or rashes no focal signs of weakness or numbness or altered sensation no complaints of anxiety or depression.. Physical Exam Physical Exam: The patient appeared morbidly obese, well nourished and normally developed. Vital signs as documented. Head exam is normocephalic atraumatic Neck is without JVD, thyromegaly, or carotid bruits. Lungs are clear to auscultation, no focal loss of breath sounds Cardiac exam, Rhythm is regular.. No murmurs, rubs or gallops. Abdominal exam reveals normal bowel sounds, soft non tender, no masses Extremities are nonedematous and both pedal pulses are present Neurologic exam is alert and oriented, no focal loss of strength or sensation Skin is without bruises or rashes Psychologically is without concerns for anxiety or depression Results & Data Results & Data ([facility]) Vital Signs (Past 12 Hours) Vital Signs Temp Pulse Resp BP Pulse Ox 04/16/21 07:34 98.2 F 95 H 18 153/84 H 97 04/16/21 04:14 98.2 F 103 H 18 146/96 H 98 04/16/21 00:08 117 H 18 165/103 H 96 PG Care Time/CCT Total # of Minutes Spent Total Time Spent with Patient: Total time spent is greater than 50% in coordination of care (as documented) at patient's floor/unit and/or counseling patient: Coding Level of Care Code 65821 Subseq Hosp Care Lvl 2 Diagnoses Diabetes E11.9 Hypertriglyceridemia E78.1
[2021-04-16 13:35] LABS: Potassium 4.4 mmol/L (3.5-5.1)
[2021-04-16] MEDS: POTASSIUM CHLORIDE 40 MEQ in SODIUM CHLORIDE 0.45 % 1,000 ML IV SCH ×2 (14:54→19:32)
--- NOTE | 2021-04-16 15:13 | Pharmacy Report ---
Pharmacy Glycemic Short Note 2 - Date of Service April 16, 2021 - Glycemic Short BSG Results (Last 24 hours): 04/15/21 04/15/21 04/15/21 17:09 17:27 18:56 Glucose Cancelled 367 H* POC Glucose 491 H* POC Glucose (other) 04/15/21 04/15/21 04/15/21 20:42 22:42 23:47 Glucose POC Glucose 261 H 246 H POC Glucose (other) 328 H 04/16/21 04/16/21 04/16/21 00:20 00:55 02:10 Glucose 221 H POC Glucose 199 H 201 H POC Glucose (other) 04/16/21 04/16/21 04/16/21 03:04 04:05 04:29 Glucose 232 H POC Glucose 227 H 215 H POC Glucose (other) 04/16/21 04/16/21 04/16/21 05:00 06:05 07:03 Glucose POC Glucose 216 H 209 H 210 H POC Glucose (other) 04/16/21 04/16/21 04/16/21 08:07 08:23 09:13 Glucose 191 H POC Glucose 176 H 176 H POC Glucose (other) 04/16/21 04/16/21 04/16/21 10:14 11:07 12:22 Glucose POC Glucose 235 H 199 H 212 H POC Glucose (other) 04/16/21 04/16/21 13:47 14:50 Glucose POC Glucose 278 H 238 H POC Glucose (other) OUTPATIENT ANTIDIABETIC REGIMEN: * N/A * A1c 11.8% ASSESSMENT: * New onset diabetes, presented with polyuria, fatigue, increased thirst. A1c 11.8%. Type to be determined * Started on insulin infusion, gap currently 12, bicarb 19, normal pH. TG also significantly elevated on admission. * Calculated patient insulin 24 hour requirements from 12 hour drip rates (209 units) and utilized to determine transition lantus dose of 60 units x 1. Dextrose was removed from fluids as patient has started to eat, would suspect drip rates to decrease with this change. Will await next set of labs to start transition to determine if change needed to plan. PLAN FOR INPATIENT GLYCEMIC CONTROL: * Insulin infusion, plan to transition when gap closed * Basal insulin * current plan to transition with 60 units x 1, will re-address if needed * Bolus insulin- if transitioned * NovoLog per scale ACHS or Q6hrs while NPO * Goal Range: Low 120 mg/dL - High 160 mg/dL * Correction Factor: 20 mg/dL/unit * Nutritional / Prandial insulin per carb ratio of 1 unit per 4 grams CHO consumed
[2021-04-16] MEDS ORDERED: INSULIN GLARGINE SOLOSTAR 100 UNITS/ML 3 ML PEN SC SCH (15:30)
[2021-04-16 17:09] LABS: Magnesium 1.8 mg/dl (1.8-2.4); Phosphorus 2.3 mg/dl (2.5-4.9)
[2021-04-16 17:20] LABS: BUN Creatinine Ratio 11.3 (10-20); Calcium 8.4 mg/dl (8.5-10.1); Creatinine Clr Calc Pharmacy 169.9 ml/min; Est GFR (African American) 124.8 ml/min; Est GFR (Non-African American) 107.7 ml/min
[2021-04-16 21:22] LABS: Potassium 4.1 mmol/L (3.5-5.1)
[2021-04-17] MEDS: POTASSIUM CHLORIDE 40 MEQ in SODIUM CHLORIDE 0.45 % 1,000 ML IV SCH ×3 (00:27→10:09)
[2021-04-17] MEDS: INSULIN REGULAR 250 UNITS in SODIUM CHLORIDE 0.9% 247.5 ML IV SCH (01:25)
[2021-04-17] MEDS ORDERED: INSULIN GLARGINE SOLOSTAR 100 UNITS/ML 3 ML PEN SC ONE (09:00)
[2021-04-17] MEDS: INSULIN ASPART 100 UNITS/ML VIAL SC SCH ×4 (09:34→20:26)
--- NOTE | 2021-04-17 09:48 | Pharmacy Report ---
Pharmacy Glycemic Short Note 2 - Date of Service April 17, 2021 - Glycemic Short BSG Results (Last 24 hours): 04/16/21 04/16/21 04/16/21 10:14 11:07 12:22 Glucose POC Glucose 235 H 199 H 212 H 04/16/21 04/16/21 04/16/21 13:47 14:50 14:59 Glucose 250 H POC Glucose 278 H 238 H 04/16/21 04/16/21 04/16/21 15:45 16:59 18:00 Glucose POC Glucose 215 H 173 H 169 H 04/16/21 04/16/21 04/16/21 19:01 20:03 22:04 Glucose POC Glucose 200 H 176 H 187 H 04/17/21 04/17/21 04/17/21 00:10 01:03 01:57 Glucose POC Glucose 136 H 120 H 126 H 04/17/21 04/17/21 04/17/21 03:02 03:23 04:06 Glucose POC Glucose 110 H 113 H 136 H 04/17/21 04/17/21 04/17/21 05:12 06:01 07:01 Glucose POC Glucose 146 H 174 H 164 H 04/17/21 04/17/21 07:57 08:54 Glucose POC Glucose 215 H 197 H OUTPATIENT ANTIDIABETIC REGIMEN: * N/A * A1c 11.8% ASSESSMENT: 04/17: * Insulin infusion rate decreased significantly overnight although infusion continues at a substantial rate (3.6 - 7.5 units/hr) * Anion gap and bicarb improved but remain outside normal range. Will continue to overlap SQ insulin with IV infusion to aid in transition in the near future. 04/16: * New onset diabetes, presented with polyuria, fatigue, increased thirst. A1c 11.8%. Type to be determined * Started on insulin infusion, gap currently 12, bicarb 19, normal pH. TG also significantly elevated on admission. * Calculated patient insulin 24 hour requirements from 12 hour drip rates (209 units) and utilized to determine transition lantus dose of 60 units x 1. Dextrose was removed from fluids as patient has started to eat, would suspect drip rates to decrease with this change. Will await next set of labs to start transition to determine if change needed to plan. PLAN FOR INPATIENT GLYCEMIC CONTROL: * Insulin infusion, plan to transition when gap closed * Basal insulin * Lantus 40 units SQ this morning * Lantus 30-40 units SQ with dinner (40 units for BSG 180 mg/dL or more) * Bolus insulin * NovoLog per scale ACHS or Q6hrs while NPO * Goal Range: Low 120 mg/dL - High 160 mg/dL * Correction Factor: -- (per drip)mg/dL/unit * Nutritional / Prandial insulin per carb ratio of 1 unit per 3 grams CHO consumed
[2021-04-17 09:56] LABS: BUN Creatinine Ratio 8.7 (10-20); Calcium 8.7 mg/dl (8.5-10.1); Creatinine Clr Calc Pharmacy 197.9 ml/min; Est GFR (African American) 143.4 ml/min; Est GFR (Non-African American) 123.7 ml/min
[2021-04-17] MEDS: lisinopril 10 MG TAB PO SCH (12:01)
[2021-04-17] MEDS: POT PHOSPHATE MONOBASIC W/ SOD TAB PO SCH ×3 (12:01→20:28)
[2021-04-17] MEDS: SODIUM CHLOR 0.45% + 20MEQ KCL 20 MEQ/1,000 ML BAG IV SCH ×2 (15:16→22:09)
[2021-04-17] MEDS ORDERED: INSULIN GLARGINE SOLOSTAR 100 UNITS/ML 3 ML PEN SC SCH (16:30)
[2021-04-17 16:45] LABS: BUN Creatinine Ratio 11.4 (10-20); Blood Urea Nitrogen 9 mg/dl (7-18); Calcium 8.4 mg/dl (8.5-10.1); Carbon Dioxide 17 mmol/L (21-32); Chloride 106 mmol/L (98-107); Creatinine Clr Calc Pharmacy 224.3 ml/min; Est GFR (African American) > 150.0 ml/min; Est GFR (Non-African American) 130.2 ml/min; Glucose 208 mg/dl (70-99); Magnesium 1.9 mg/dl (1.8-2.4); Potassium 3.9 mmol/L (3.5-5.1); Sodium 136 mmol/L (136-145)
[2021-04-17 21:50] LABS: Albumin Level 3.1 gm/dl (3.4-5.0); BUN Creatinine Ratio 10.9 (10-20); Calcium 8.4 mg/dl (8.5-10.1); Creatinine Clr Calc Pharmacy 218.5 ml/min; Est GFR (African American) 149.3 ml/min; Est GFR (Non-African American) 128.8 ml/min; Potassium 3.8 mmol/L (3.5-5.1)
--- NOTE | 2021-04-17 21:51 | Hospitalist Progress Note ---
Date of Service April 17, 2021 Assessment & Plan (1) DKA (diabetic ketoacidosis): Plan: Improving, but gap still not closed. Remains on insulin drip - managed by pharmacy. Remains on IVF. Cont serial labs. Transition to SC insulin regimen once gap is closed. (2) Uncontrolled diabetes mellitus: Plan: New dx. A1c 11.8%. Given the severity of his DM - which may be a "mix" type1/type2 diabetic - will need 4-shot regimen at discharge. Cont insulin drip -- then SC regimen per pharmacy. Appreciate their assistance. Auto-antibodies pending to r/o autoimmune DM. (3) Hypertriglyceridemia: Plan: SEVERE. Level >1000. Repeat level also >1000. Recent guidelines suggest dietary modification first (low fat diet) to lower the trigs to <1000. Once below 1000 then start a fibrate + fish oil. Discussed with him the risk of pancreatitis with high trigs. (4) Elevated blood pressure reading without diagnosis of hypertension: Plan: Proteinuria and consistently elevated BPs suggest probable essential HTN. Given the proteinuria and DM will start lisinopril 10mg daily. (5) Proteinuria: Plan: See above. Start CHANTEL. (6) Obesity: Plan: BMI 33.9. Plan: Change IVF to NS with 20KCL at 125cc/hr. Replace phos with oral supplement. Serial labs. Admission and Anticipated Discharge Date Admission Date: April 15, 2021 Subjective patient reports overall feeling better he denies any N/V/abd pain tolerating diet we discussed his family history - no fam hx of DM or hyperlipidemia he does think that his triglycerides were about 400 - checked while living in [place] we discussed his blood pressures being high Review of Systems Review of Systems: gen - no fevers or chills; recent 12 pounds of weight loss CV - no cp pulm - no cough or congestion GI - no nausea/vomiting/diarrhea Physical Exam Physical Exam: gen - NAD, pleasant mouth - MMM, no thrush neck - no JVD; no thyroidmegaly or nodules heart - tachy, s1, s2, RR, no murmur lungs - CTA b/l abd - soft NT ND BS+ ext - no edema, pulses 2+ b/l Results & Data Results & Data ([facility]) Vital Signs (Past 12 Hours) Vital Signs Temp Pulse Resp BP Pulse Ox 04/17/21 15:43 36.3 C L 110 H 16 141/98 H 96 Laboratory Results Abnormal lab results 04/16/21 04/17/21 04/17/21 Range/Units 22:04 00:10 01:03 Carbon Dioxide (21-32) mmol/L Anion Gap (3-11) BUN/Creatinine Ratio (10-20) Glucose (70-99) mg/dl POC Glucose 187 H 136 H 120 H (70-99) mg/dl Calcium (8.5-10.1) mg/dl 04/17/21 04/17/21 04/17/21 Range/Units 01:57 03:02 03:23 Carbon Dioxide (21-32) mmol/L Anion Gap (3-11) BUN/Creatinine Ratio (10-20) Glucose (70-99) mg/dl POC Glucose 126 H 110 H 113 H (70-99) mg/dl Calcium (8.5-10.1) mg/dl 04/17/21 04/17/21 04/17/21 Range/Units 04:06 05:12 06:01 Carbon Dioxide (21-32) mmol/L Anion Gap (3-11) BUN/Creatinine Ratio (10-20) Glucose (70-99) mg/dl POC Glucose 136 H 146 H 174 H (70-99) mg/dl Calcium (8.5-10.1) mg/dl 04/17/21 04/17/21 04/17/21 Range/Units 07:01 07:57 08:49 Carbon Dioxide 17 L (21-32) mmol/L Anion Gap 13.0 H (3-11) BUN/Creatinine Ratio 8.7 L (10-20) Glucose 208 H (70-99) mg/dl POC Glucose 164 H 215 H (70-99) mg/dl Calcium (8.5-10.1) mg/dl 04/17/21 04/17/21 04/17/21 Range/Units 08:54 10:04 11:01 Carbon Dioxide (21-32) mmol/L Anion Gap (3-11) BUN/Creatinine Ratio (10-20) Glucose (70-99) mg/dl POC Glucose 197 H 294 H 265 H (70-99) mg/dl Calcium (8.5-10.1) mg/dl 04/17/21 04/17/21 04/17/21 Range/Units 11:59 13:02 14:01 Carbon Dioxide (21-32) mmol/L Anion Gap (3-11) BUN/Creatinine Ratio (10-20) Glucose (70-99) mg/dl POC Glucose 250 H 253 H 257 H (70-99) mg/dl Calcium (8.5-10.1) mg/dl 04/17/21 04/17/21 04/17/21 Range/Units 15:02 16:02 16:09 Carbon Dioxide 17 L (21-32) mmol/L Anion Gap 13.0 H (3-11) BUN/Creatinine Ratio (10-20) Glucose 208 H (70-99) mg/dl POC Glucose 207 H 199 H (70-99) mg/dl Calcium 8.4 L (8.5-10.1) mg/dl 04/17/21 04/17/21 04/17/21 Range/Units 17:01 18:58 20:13 Carbon Dioxide (21-32) mmol/L Anion Gap (3-11) BUN/Creatinine Ratio (10-20) Glucose (70-99) mg/dl POC Glucose 172 H 233 H 254 H (70-99) mg/dl Calcium (8.5-10.1) mg/dl 04/17/21 Range/Units 21:07 Carbon Dioxide (21-32) mmol/L Anion Gap (3-11) BUN/Creatinine Ratio (10-20) Glucose (70-99) mg/dl POC Glucose 244 H (70-99) mg/dl Calcium (8.5-10.1) mg/dl PG Care Time/CCT Total # of Minutes Spent Total Time Spent with Patient: Total time spent is greater than 50% in coordination of care (as documented) at patient's floor/unit and/or counseling patient: Coding Level of Care Code 13609 Subseq Hosp Care Lvl 2 Diagnoses DKA (diabetic ketoacidosis) E11.10 Uncontrolled diabetes mellitus E11.65 Hypertriglyceridemia E78.1 Elevated blood pressure reading without diagnosis of hypertension R03.0 Proteinuria R80.9 Obesity E66.9
[2021-04-17 21:53] LABS: Bilirubin,Total 0.5 mg/dl (0.2-1); Globulin 3.1 gm/dl (2.5-4.0); Total Protein 6.2 gm/dl (6.4-8.2)
[2021-04-18] MEDS: SODIUM CHLOR 0.45% + 20MEQ KCL 20 MEQ/1,000 ML BAG IV SCH (05:25)
[2021-04-18 07:11] LABS: Blood Urea Nitrogen 8 mg/dl (7-18); Calcium 8.6 mg/dl (8.5-10.1); Carbon Dioxide 23 mmol/L (21-32); Chloride 108 mmol/L (98-107); Creatinine Clr Calc Pharmacy 224.3 ml/min; Est GFR (African American) > 150.0 ml/min; Est GFR (Non-African American) 130.2 ml/min; Glucose 118 mg/dl (70-99); Magnesium 2.1 mg/dl (1.8-2.4); Phosphorus 4.2 mg/dl (2.5-4.9); Potassium 3.2 mmol/L (3.5-5.1); Sodium 139 mmol/L (136-145)
[2021-04-18] MEDS: INSULIN GLARGINE SOLOSTAR 100 UNITS/ML 3 ML PEN SC SCH ×2 (07:32→22:18)
[2021-04-18] MEDS: INSULIN REGULAR 250 UNITS in SODIUM CHLORIDE 0.9% 247.5 ML IV SCH ×2 (08:51→11:58)
[2021-04-18] MEDS: POT PHOSPHATE MONOBASIC W/ SOD TAB PO SCH ×4 (08:53→20:33)
[2021-04-18] MEDS: lisinopril 10 MG TAB PO SCH (08:53)
[2021-04-18] MEDS: POTASSIUM CHLORIDE CRTAB 20 MEQ TABCR PO SCH ×3 (08:55→20:33)
[2021-04-18] MEDS: INSULIN ASPART 100 UNITS/ML VIAL SC SCH ×4 (08:56→21:30)
--- NOTE | 2021-04-18 10:03 | Ultrasound Report ---
US gallbladder CLINICAL HISTORY: abnormal LFTs, eval fatty liver TECHNIQUE: Multiple real-time sonographic images of the right upper quadrant were obtained. Comparison: None available at the time of this dictation. FINDINGS: The liver is diffusely echogenic in appearance with poor ultrasound penetration, with normal contour, which is consistent with fatty infiltration. No focal mass lesions are seen. No intrahepatic opal nica dilatation is seen. No gallstones or sludge are identified within the gallbladder. The gallbladd er wall is not thickened. There is no pericholecystic fluid present. A sonographic Carrington's sign was not elicited by the senior engineering associate. The common duct measures 0.4 cm in diameter at the level of the h epatic artery. The visualized portions of the pancreas appear normal. The right kidney shows normal echogenicity, cortical thickness and renal contour. The right kidney sh ows no evidence of hydronephrosis or mass. No ascites or free fluid is seen in Perdomo's pouch. IMPRESSION: Hepatic steatosis without evidence of acute abnormality. ACT 112: Negative or not required by law. Electronically signed by: Vaughn Ramos M.D. 04/18/2021 10:01 AM
--- NOTE | 2021-04-18 14:58 | Pharmacy Report ---
Pharmacy Glycemic Short Note 2 - Date of Service April 18, 2021 - Glycemic Short BSG Results (Last 24 hours): 04/17/21 04/17/21 04/17/21 15:02 16:02 16:09 Glucose 208 H POC Glucose 207 H 199 H 04/17/21 04/17/21 04/17/21 17:01 18:58 20:13 Glucose POC Glucose 172 H 233 H 254 H 04/17/21 04/17/21 04/17/21 21:07 21:10 22:13 Glucose 270 H POC Glucose 244 H 223 H 04/17/21 04/18/21 04/18/21 23:16 00:21 01:16 Glucose POC Glucose 187 H 167 H 148 H 04/18/21 04/18/21 04/18/21 02:19 04:20 05:17 Glucose POC Glucose 138 H 115 H 106 H 04/18/21 04/18/21 04/18/21 05:52 06:18 07:26 Glucose 118 H POC Glucose 140 H 141 H 04/18/21 04/18/21 04/18/21 08:42 10:55 11:56 Glucose POC Glucose 170 H 196 H 184 H 04/18/21 04/18/21 12:55 13:56 Glucose POC Glucose 181 H 169 H OUTPATIENT ANTIDIABETIC REGIMEN: * N/A * A1c 11.8% ASSESSMENT: 04/18: * Insulin drip continues at 5.8units/hr, anion gap closed, US of Gallbladder today, minimal CHO intake today * Increase Lantus 04/17: * Insulin infusion rate decreased significantly overnight although infusion continues at a substantial rate (3.6 - 7.5 units/hr) * Anion gap and bicarb improved but remain outside normal range. Will continue to overlap SQ insulin with IV infusion to aid in transition in the near future. 04/16: * New onset diabetes, presented with polyuria, fatigue, increased thirst. A1c 11.8%. Type to be determined * Started on insulin infusion, gap currently 12, bicarb 19, normal pH. TG also significantly elevated on admission. * Calculated patient insulin 24 hour requirements from 12 hour drip rates (209 units) and utilized to determine transition lantus dose of 60 units x 1. Dextrose was removed from fluids as patient has started to eat, would suspect drip rates to decrease with this change. Will await next set of labs to start transition to determine if change needed to plan. PLAN FOR INPATIENT GLYCEMIC CONTROL: * Insulin infusion, continue at this time, still running at 5units/hr, no word on discharge today * Basal insulin -increase * Lantus 60 units SQ BID * Bolus insulin * NovoLog per scale ACHS or Q6hrs while NPO * Goal Range: Low 120 mg/dL - High 160 mg/dL * Correction Factor: -- (per drip)mg/dL/unit * Nutritional / Prandial insulin per carb ratio of 1 unit per 3 grams CHO consumed DISCHARGE RECOMMENDATIONS: * Lantus 60 units SQ BID * Humalog: CR 1 unit per 5 grams CHO consumed + CF of 1 unit for every 20 points above 160mg/dl * Close follow up with outpatient provider, CDE reports appt made for 04/20 Support Patient Self-Management oHealthy Lifestyle (diet, exercise, and smoking cessation) oDisease self-management (SMBG) oPrevention of complications (BP, Lipid goals) oConsider outpatient Diabetes Self-Management Education & Support
--- NOTE | 2021-04-18 20:38 | Hospitalist Progress Note ---
Date of Service April 18, 2021 Assessment & Plan (1) DKA (diabetic ketoacidosis): Plan: Resolved. Gap closed. BSGs markedly improved. Has had lantus/novolog started and titrated. Remains on insulin drip, however. pharmacy attempting to wean off today. Dehydration resolved, and pt's labs are normal. Patient is drinking well. Can d/c fluids. Cont serial labs. (2) Uncontrolled diabetes mellitus: Plan: New dx. A1c 11.8%. Given the severity of his DM - which may be a "mix" type1/type2 diabetic - will need 4-shot regimen at discharge. Cont insulin drip but wean off. Appreciate pharmacy assistance. Auto-antibodies pending to r/o autoimmune DM. (3) Hypertriglyceridemia: Plan: SEVERE. Level >1000. Repeat level also >1000. Recent guidelines suggest dietary modification first (low fat diet) to lower the trigs to <1000. Once below 1000 then start a fibrate + fish oil. Discussed with him the risk of pancreatitis with high trigs. At discharge consider prescription fish oil with repeat Trigs in 1 month. (4) Elevated blood pressure reading without diagnosis of hypertension: Plan: Proteinuria and consistently elevated BPs suggest probable essential HTN. Given the proteinuria and DM started lisinopril 10mg daily. BPS improved w/ such. (5) Proteinuria: Plan: See above. Started CHANTEL. (6) Obesity: Plan: BMI 33.9. (7) Transaminitis: Plan: Due to persistent high AST / ALT obtained RUQ us. Fatty liver present. Otherwise normal us. Discussed dx with patient. (8) Hypokalemia: Plan: replaced repeat BMP am (9) Hypophosphatemia: Plan: replace repeat level am Plan: progressing ideally needs 24 hours off insulin drip with stable BSGs on SC regimen Admission and Anticipated Discharge Date Admission Date: April 15, 2021 Subjective patient w/o complaints anxious to go home he is eating well no N/V no abd pain he does report a mild runny nose and cough but again - mild no dyspnea multiple questions about his DM Review of Systems Review of Systems: gen - no fevers, no chills, eating well CV - no cp pulm - no sputum GI - no abd pain, nausea, emesis - no dysuria Physical Exam Physical Exam: gen - NAD, pleasant, looks great mouth - MMM, no thrush neck - no JVD; no thyroidmegaly or nodules heart - tachy, s1, s2, RR, no murmur lungs - CTA b/l abd - soft NT ND BS+ ext - no edema, pulses 2+ b/l Results & Data Results & Data ([facility]) Vital Signs (Past 12 Hours) Vital Signs Temp Pulse Resp BP Pulse Ox 04/18/21 15:53 36.7 C 103 H 16 142/97 H 97 Laboratory Results Laboratory Results - last 24 hr 04/17/21 04/17/21 04/17/21 21:07 21:10 22:13 Sodium 137 Potassium 3.8 Chloride 106 Carbon Dioxide 19 L Anion Gap 12.0 H BUN 8 Creatinine 0.77 Est Cr Clr Drug Dosing 218.5 Est GFR ( Amer) 149.3 Est GFR (Non-Af Amer) 128.8 BUN/Creatinine Ratio 10.9 Glucose 270 H POC Glucose 244 H 223 H Calcium 8.4 L Phosphorus Magnesium Total Bilirubin 0.5 AST 113 H ALT 143 H Alkaline Phosphatase 67 Total Protein 6.2 L Albumin 3.1 L Globulin 3.1 Albumin/Globulin Ratio 1.0 Specimen Hemolysis 04/17/21 04/18/21 04/18/21 23:16 00:21 01:16 Sodium Potassium Chloride Carbon Dioxide Anion Gap BUN Creatinine Est Cr Clr Drug Dosing Est GFR ( Amer) Est GFR (Non-Af Amer) BUN/Creatinine Ratio Glucose POC Glucose 187 H 167 H 148 H Calcium Phosphorus Magnesium Total Bilirubin AST ALT Alkaline Phosphatase Total Protein Albumin Globulin Albumin/Globulin Ratio Specimen Hemolysis 04/18/21 04/18/21 04/18/21 02:19 04:20 05:17 Sodium Potassium Chloride Carbon Dioxide Anion Gap BUN Creatinine Est Cr Clr Drug Dosing Est GFR ( Amer) Est GFR (Non-Af Amer) BUN/Creatinine Ratio Glucose POC Glucose 138 H 115 H 106 H Calcium Phosphorus Magnesium Total Bilirubin AST ALT Alkaline Phosphatase Total Protein Albumin Globulin Albumin/Globulin Ratio Specimen Hemolysis 04/18/21 04/18/21 04/18/21 05:52 06:18 07:26 Sodium 139 Potassium 3.2 L D Chloride 108 H Carbon Dioxide 23 Anion Gap 8.0 BUN 8 Creatinine 0.75 Est Cr Clr Drug Dosing 224.3 Est GFR ( Amer) > 150.0 Est GFR (Non-Af Amer) 130.2 BUN/Creatinine Ratio 10.0 Glucose 118 H POC Glucose 140 H 141 H Calcium 8.6 Phosphorus 4.2 D Magnesium 2.1 Total Bilirubin AST ALT Alkaline Phosphatase Total Protein Albumin Globulin Albumin/Globulin Ratio Specimen Hemolysis 04/18/21 04/18/21 04/18/21 08:42 09:58 10:55 Sodium Potassium Chloride Carbon Dioxide Anion Gap BUN Creatinine Est Cr Clr Drug Dosing Est GFR ( Amer) Est GFR (Non-Af Amer) BUN/Creatinine Ratio Glucose POC Glucose 170 H 193 H 196 H Calcium Phosphorus Magnesium Total Bilirubin AST ALT Alkaline Phosphatase Total Protein Albumin Globulin Albumin/Globulin Ratio Specimen Hemolysis 04/18/21 04/18/21 04/18/21 11:56 12:55 13:56 Sodium Potassium Chloride Carbon Dioxide Anion Gap BUN Creatinine Est Cr Clr Drug Dosing Est GFR ( Amer) Est GFR (Non-Af Amer) BUN/Creatinine Ratio Glucose POC Glucose 184 H 181 H 169 H Calcium Phosphorus Magnesium Total Bilirubin AST ALT Alkaline Phosphatase Total Protein Albumin Globulin Albumin/Globulin Ratio Specimen Hemolysis 04/18/21 04/18/21 04/18/21 15:16 15:52 16:56 Sodium Potassium Chloride Carbon Dioxide Anion Gap BUN Creatinine Est Cr Clr Drug Dosing Est GFR ( Amer) Est GFR (Non-Af Amer) BUN/Creatinine Ratio Glucose POC Glucose 167 H 135 H 125 H Calcium Phosphorus Magnesium Total Bilirubin AST ALT Alkaline Phosphatase Total Protein Albumin Globulin Albumin/Globulin Ratio Specimen Hemolysis 04/18/21 04/18/21 04/18/21 17:58 19:05 20:06 Sodium Potassium Chloride Carbon Dioxide Anion Gap BUN Creatinine Est Cr Clr Drug Dosing Est GFR ( Amer) Est GFR (Non-Af Amer) BUN/Creatinine Ratio Glucose POC Glucose 128 H 156 H 170 H Calcium Phosphorus Magnesium Total Bilirubin AST ALT Alkaline Phosphatase Total Protein Albumin Globulin Albumin/Globulin Ratio Specimen Hemolysis Diagnostic Findings Gallbladder Ultrasound 04/18/21 08:46 US gallbladder CLINICAL HISTORY: abnormal LFTs, eval fatty liver TECHNIQUE: Multiple real-time sonographic images of the right upper quadrant were obtained. Comparison: None available at the time of this dictation. FINDINGS: The liver is diffusely echogenic in appearance with poor ultrasound penetration, with normal contour, which is consistent with fatty infiltration. No focal mass lesions are seen. No intrahepatic ductal dilatation is seen. No gallstones or sludge are identified within the gallbladder. The gallbladder wall is not thickened. There is no pericholecystic fluid present. A sonographic Carrington's sign was not elicited by the entry level accounting clerk. The common duct measures 0.4 cm in diameter at the level of the hepatic artery. The visualized portions of the pancreas appear normal. The right kidney shows normal echogenicity, cortical thickness and renal contour. The right kidney shows no evidence of hydronephrosis or mass. No ascites or free fluid is seen in Perdomo's pouch. IMPRESSION: Hepatic steatosis without evidence of acute abnormality. ACT 112: Negative or not required by law. Electronically signed by: Vaughn Ramos M.D. 04/18/2021 10:01 AM PG Care Time/CCT Total # of Minutes Spent Total Time Spent with Patient: Total time spent is greater than 50% in coordination of care (as documented) at patient's floor/unit and/or counseling patient: Coding Level of Care Code 30046 Subseq Hosp Care Lvl 3 Diagnoses DKA (diabetic ketoacidosis) E11.10 Uncontrolled diabetes mellitus E11.65 Hypertriglyceridemia E78.1 Elevated blood pressure reading without diagnosis of hypertension R03.0 Proteinuria R80.9 Obesity E66.9 Transaminitis R74.01 Hypokalemia E87.6 Hypophosphatemia E83.39
[2021-04-19] MEDS: MELATONIN 3 MG TAB PO SCH (00:21)
[2021-04-19] MEDS: INSULIN REGULAR 250 UNITS in SODIUM CHLORIDE 0.9% 247.5 ML IV SCH (00:28)
[2021-04-19 08:42] LABS: BUN Creatinine Ratio 12.6 (10-20); Calcium 9.1 mg/dl (8.5-10.1); Creatinine Clr Calc Pharmacy 195.6 ml/min; Est GFR (African American) 142.7 ml/min; Est GFR (Non-African American) 123.1 ml/min; Potassium 3.6 mmol/L (3.5-5.1)
[2021-04-19 08:45] LABS: Magnesium 2.1 mg/dl (1.8-2.4); Phosphorus 4.7 mg/dl (2.5-4.9)
[2021-04-19] MEDS: lisinopril 10 MG TAB PO SCH (09:14)
[2021-04-19] MEDS: POT PHOSPHATE MONOBASIC W/ SOD TAB PO SCH (09:15)
[2021-04-19] MEDS: INSULIN GLARGINE SOLOSTAR 100 UNITS/ML 3 ML PEN SC SCH ×2 (09:32→21:44)
[2021-04-19] MEDS: INSULIN ASPART 100 UNITS/ML VIAL SC SCH ×4 (09:34→21:44)
--- NOTE | 2021-04-19 15:14 | Pharmacy Report ---
Pharmacy Glycemic Short Note 2 - Date of Service April 19, 2021 - Glycemic Short BSG Results (Last 24 hours): 04/18/21 04/18/21 04/18/21 09:58 15:16 15:52 Glucose POC Glucose 193 H 167 H 135 H 04/18/21 04/18/21 04/18/21 16:56 17:58 19:05 Glucose POC Glucose 125 H 128 H 156 H 04/18/21 04/18/21 04/18/21 20:06 21:01 22:12 Glucose POC Glucose 170 H 184 H 175 H 04/18/21 04/19/21 04/19/21 22:58 00:04 01:59 Glucose POC Glucose 168 H 155 H 143 H 04/19/21 04/19/21 04/19/21 04:06 06:12 07:20 Glucose 149 H POC Glucose 142 H 151 H 04/19/21 04/19/21 04/19/21 08:02 10:00 12:06 Glucose POC Glucose 165 H 155 H 168 H OUTPATIENT ANTIDIABETIC REGIMEN: * N/A * A1c 11.8% ASSESSMENT: 04/19: * Blood sugars at goal on insulin drip, currently at 4.2 units/hr, will trial off of drip today at 1200 * Increase Lantus * Likely discharge tomorrow 04/18: * Insulin drip continues at 5.8units/hr, anion gap closed, US of Gallbladder today, minimal CHO intake today * Increase Lantus 04/17: * Insulin infusion rate decreased significantly overnight although infusion continues at a substantial rate (3.6 - 7.5 units/hr) * Anion gap and bicarb improved but remain outside normal range. Will continue to overlap SQ insulin with IV infusion to aid in transition in the near future. 04/16: * New onset diabetes, presented with polyuria, fatigue, increased thirst. A1c 11.8%. Type to be determined * Started on insulin infusion, gap currently 12, bicarb 19, normal pH. TG also significantly elevated on admission. * Calculated patient insulin 24 hour requirements from 12 hour drip rates (209 units) and utilized to determine transition lantus dose of 60 units x 1. Dextrose was removed from fluids as patient has started to eat, would suspect drip rates to decrease with this change. Will await next set of labs to start transition to determine if change needed to plan. PLAN FOR INPATIENT GLYCEMIC CONTROL: * Insulin infusion - DC at 1200 today * Basal insulin -increase * Lantus 80 units SQ BID * Bolus insulin * NovoLog per scale ACHS + overnight at 0000 tonight * Goal Range: Low 110 mg/dL - High 140 mg/dL * Correction Factor: 8 mg/dL/unit * Nutritional / Prandial insulin per carb ratio of 1 unit per 2 grams CHO consumed DISCHARGE RECOMMENDATIONS: * Lantus 60 units SQ BID * Humalog: CR 1 unit per 5 grams CHO consumed + CF of 1 unit for every 20 points above 160mg/dl * Close follow up with outpatient provider, CDE reports appt made for 04/20 Support Patient Self-Management oHealthy Lifestyle (diet, exercise, and smoking cessation) oDisease self-management (SMBG) oPrevention of complications (BP, Lipid goals) oConsider outpatient Diabetes Self-Management Education & Support
[2021-04-20] MEDS ORDERED: INSULIN ASPART 100 UNITS/ML VIAL SC SCH
[2021-04-20] MEDS: MELATONIN 3 MG TAB PO SCH (00:16)
--- NOTE | 2021-04-20 00:29 | Hospitalist Progress Note ---
Date of Service April 19, 2021 Assessment & Plan (1) DKA (diabetic ketoacidosis): Plan: Resolved. Insulin infusion finally weaned off earlier this afternoon. Remains on large doses of lantus/novolog SC. Patient wanted to leave this afternoon. Explained that drip was just weaned off hours prior and, given that he is a new onset diabetic, that he needs additional time to ensure SC regimen is optimized. Appreciate pharmacy assistance. Eprescribed all insulins and supplies to his pharmacy this evening. (2) Uncontrolled diabetes mellitus: Plan: New dx. A1c 11.8%. Given the severity of his DM - which may be a "mix" type1/type2 diabetic - will need 4-shot regimen at discharge. Insulin drip weaned off today. Appreciate pharmacy assistance. Auto-antibodies pending to r/o autoimmune DM. Refer to [facility] Endocrinology before discharge. (3) Hypertriglyceridemia: Plan: SEVERE. Level >1000. Repeat level also >1000. Recent guidelines suggest dietary modification first (low fat diet) to lower the trigs to <1000. Once below 1000 then start a fibrate + fish oil. Discussed with him the risk of pancreatitis with high trigs. At discharge work on low-fat diet - intensely - with repeat trigs level in 4-6 weeks. Then follow guidelines above. (4) Elevated blood pressure reading without diagnosis of hypertension: Plan: Proteinuria and consistently elevated BPs suggest probable essential HTN. Given the proteinuria and DM started lisinopril 10mg daily. BPS improved w/ such. (5) Proteinuria: Plan: See above. Started CHANTEL. (6) Obesity: Plan: BMI 33.9. (7) Transaminitis: Plan: Due to persistent high AST / ALT obtained RUQ us. Fatty liver present. Otherwise normal us. Discussed dx with patient. Intense efforts at dietary and lifestyle modifications needed. Treat high trigs. (8) Hypokalemia: Plan: replaced and resolved stop supplementation repeat BMP am (9) Hypophosphatemia: Plan: replaced and resolved stop phos supplementation (10) Sinus tachycardia: Plan: cause ?? dehydration resolved TSH wnl - no hyperthyroidism No anemia, pain or severe anxiety No symptoms to suggest PE he recalls being told in [place] that his HR is high thus chronic discussed this with patient today deserves echo Plan: patient finally was agreeable to staying overnight observe off insulin drip likely d/c tomorrow Admission and Anticipated Discharge Date Admission Date: April 15, 2021 Subjective patient upset that he can't go home today his girlfriend is leaving early tomorrow AM to travel to the [facility] and they were hoping to spend time together before her departure unfortunately his insulin infusion was not weaned off until about 12noon/1pm today he remains without any physical complaints feels good we discussed his tachycardia; he recalls being told in [place] that his HR was fast and that it was because of his obesity?? apparently during AM meds patient was given 40 units of lantus SC in his arm the additional 40 units was given in his abd wall and there is concern he didn't receive the entire dose? Review of Systems Review of Systems: gen - no fevers, chills or anorexia cv - no cp; denies palpitations pulm - denies any cough today GI - no N/V/abd pain Physical Exam Physical Exam: gen - NAD, looks great, irritable, obese mouth - MMM, no thrush neck - no JVD; no thyroidmegaly or nodules heart - tachy, s1, s2, RR, no murmur lungs - CTA b/l abd - soft NT ND BS+ ext - no edema, pulses 2+ b/l Results & Data Results & Data ([facility]) Vital Signs (Past 12 Hours) Vital Signs Temp Pulse Resp BP BP Pulse Ox 04/19/21 23:45 36.6 C 107 H 16 129/88 96 04/19/21 14:26 36.7 C 110 H 16 135/84 97 Laboratory Results Laboratory Results - last 24 hr 04/19/21 04/19/21 04/19/21 01:59 04:06 06:12 Sodium Potassium Chloride Carbon Dioxide Anion Gap BUN Creatinine Est Cr Clr Drug Dosing Est GFR ( Amer) Est GFR (Non-Af Amer) BUN/Creatinine Ratio Glucose POC Glucose 143 H 142 H 151 H Calcium Phosphorus Magnesium 04/19/21 04/19/21 04/19/21 07:20 08:02 10:00 Sodium 140 Potassium 3.6 Chloride 107 Carbon Dioxide 22 Anion Gap 11.0 BUN 11 Creatinine 0.86 Est Cr Clr Drug Dosing 195.6 Est GFR ( Amer) 142.7 Est GFR (Non-Af Amer) 123.1 BUN/Creatinine Ratio 12.6 Glucose 149 H POC Glucose 165 H 155 H Calcium 9.1 Phosphorus 4.7 Magnesium 2.1 04/19/21 04/19/21 04/19/21 12:06 17:12 21:32 Sodium Potassium Chloride Carbon Dioxide Anion Gap BUN Creatinine Est Cr Clr Drug Dosing Est GFR ( Amer) Est GFR (Non-Af Amer) BUN/Creatinine Ratio Glucose POC Glucose 168 H 164 H 228 H Calcium Phosphorus Magnesium PG Care Time/CCT Total # of Minutes Spent Total Time Spent with Patient: Total time spent is greater than 50% in coordination of care (as documented) at patient's floor/unit and/or counseling patient: Coding Level of Care Code 34647 Subseq Hosp Care Lvl 3 Diagnoses DKA (diabetic ketoacidosis) E11.10 Uncontrolled diabetes mellitus E11.65 Hypertriglyceridemia E78.1 Elevated blood pressure reading without diagnosis of hypertension R03.0 Proteinuria R80.9 Obesity E66.9 Transaminitis R74.01 Hypokalemia E87.6 Hypophosphatemia E83.39 Sinus tachycardia R00.0
[2021-04-20] MEDS ORDERED: INSULIN GLARGINE SOLOSTAR 100 UNITS/ML 3 ML PEN SC ONE (08:45)
[2021-04-20] MEDS: lisinopril 10 MG TAB PO SCH (09:05)
[2021-04-20] MEDS: INSULIN ASPART 100 UNITS/ML VIAL SC SCH ×2 (09:09→12:52)
[2021-04-20 09:41] LABS: Basophils # (auto) 0.03 K/uL (0-0.2); Basophils % (auto) 0.4 %; Eosinophils # (auto) 0.15 K/uL (0-0.5); Eosinophils % (auto) 2.2 %; Hematocrit (blood only) 48.9 % (42-52); Hemoglobin 16.8 g/dL (14.0-18.0); Immature Granulocytes # (auto) 0.05 K/uL (0.00-0.02); Immature Granulocytes % (auto) 0.7 %; Lymphocytes # (auto) 2.69 K/uL (1.2-3.4); Mean Corpuscular Hgb Conc 34.4 g/dL (32-36); Mean Corpuscular Volume 87.3 fL (80-100); Mean Platelet Volume 10.4 fL (7.4-10.4); Monocytes # (auto) 0.56 K/uL (0.11-0.59); Monocytes % (auto) 8.1 %; Neutrophils # (auto) 3.42 K/uL (1.4-6.5); Neutrophils % (auto) 49.6 %; Platelet Count 229 K/uL (130-400); RDW Coefficient of Variation 13.1 % (11.5-14.5); RDW Standard Deviation 41.9 fL (36.4-46.3)
[2021-04-20 09:52] LABS: BUN Creatinine Ratio 13.6 (10-20); Calcium 9.3 mg/dl (8.5-10.1); Creatinine Clr Calc Pharmacy 195.6 ml/min; Est GFR (African American) 142.7 ml/min; Est GFR (Non-African American) 123.1 ml/min
--- NOTE | 2021-04-20 19:10 | Discharge Summary ---
Date of Service April 20, 2021 Principal Diagnosis 1. Hyperglycemiaimproved 2. Newly diagnosed diabetes mellitus 3. Hypertriglyceridemia 4. Hypertension 5. Transaminitis Discharge Exam General: Resting comfortably in his hospital bed. NAD. HEENT: Head is AT/NC buccal mucosa is moist and pink Neck: No JVD. Negative hepatojugular reflex Cardiac: RRR without M/G/R Lungs: CTA without W/R/R Abdomen: Normoactive X4. Soft and nontender in all quadrants. Extremities: No peripheral clubbing cyanosis or edema Neuro: A&O X4 cranial nerves II through XII are grossly intact no focal neuro deficits Skin: No obvious skin lesions or rashes Psych: Appropriate affect pleasant and cooperative Discharge Data Allergies Allergy/AdvReac Type Severity Reaction Status Date / Time shrimp Allergy Severe SHORT OF Verified 04/20/21 08:14 BREATH, HIVES Ordered Studies 04/18/21 08:46 US gallbladder Routine IMPRESSION: Hepatic steatosis without evidence of acute abnormality. Diabetes Follow up Diabetes Follow-up Needed for HgbA1c >9%,Newly Diagnosed Diabetes Hospital Course (1) DKA (diabetic ketoacidosis): 21-year-old white male who presented with presumed hyperglycemia (as he was having polydipsia, polyuria, polyphagia and unexplained weight loss) presenting blood sugar was 491. Anion gap 22. Serum bicarb 15. pH 7.34. Unable to obtain a beta hydroxybutyric acid due to his lipoic blood Patient was placed on an insulin drip and aggressively hydrated with IV fluids. Insulin drip continued until 04/19 when he was converted to Lantus/log Patient had diabetic education with lengthy discussion with patient regarding the importance of good glycemic control Patient requiring significant amounts of insulin to keep his blood sugars controlled (80 units twice daily to keep his blood sugars between 125 and 195) At this point, will discharge with Lantus 60 units twice daily (which may be under estimating; however, I would rather him be hyperglycemic than hypoglycemic). Can continue to titrate accordingly Patient was initiated on carb counting sliding scale. I discussed transitioning him to 10 units of log with each meal; however, he would prefer to continue the carb counting sliding scale. He is to inject 1 unit of Humalog per every 5 carbs Antibodies ordered to help differentiate adult onset type I versus type II. These are pending Lisinopril added to help with blood pressure control. This will help with nephro protection Patient will need follow-up labs (recommend metabolic panel in 1 month and again in 3 months with follow-up A1c in 3 months). At discretion of PCP (2) Hypertriglyceridemia: Triglyceride level >1000 Recommended dietary and lifestyle modifications Start TriCor Recommend follow-up labs in 3 months (lipid panel) to trend Lengthy discussion with patient regarding the link between hypertriglyceridemia/hyperglycemia and pancreatitis (3) HTN (hypertension): BP 160/120. Started on lisinopril BP on the day of discharge is 127/85 (4) Hypokalemia: Replaced and resolved (5) Transaminitis: Mildly elevated AST/ALT (113/143). Total bilirubin normal Ultrasound of the right upper quadrant shows hepatic steatosis Monitor blood sugars closely Follow-up with PCP within 7 to 10 days Recommend follow-up labs: At discretion of PCP #1. CMP1 month #2. CMP, A1c, lipid panel3 months #3. Up titration of insulin accordingly #4.? Addition of Metformin based on antibody levels to help differentiate type I versus type II Total Time Total Time Spent Total Time Spent (In Minutes): 60 Discharge Plan Discharge Items Patient Disposition: Home - Self-Care Reason For Visit: DKA Discharge Diagnosis: 1. New-onset Diabetes Mellitus 2. Diabetic Ketoacidosis ("DKA") 3. SEVERE high triglycerides (>1000) 4. Protein in the urine - likely due to #4 5. Abnormal liver function tests likely due to fatty liver 6. Elevated Blood Pressure ("Hypertension") Activity: Resume your previous activity Non-emergency contact: Primary Care Provider Call non-emergency contact if: you have any medication questions Follow-up/Referrals: [facility] [address] [Non-Staff] - 04/20/21 8:00 am (Please arrive to appointment 10 min. early. Appointment is with Dr. Aguirre. If you are unable to make this appointment, please call [phone] to reschedule. Thank you!) Diet: Carb Consistent or DM2 Addtl Attending Provider Instructions: - you were hospitalized with elevated blood glucose levels (newly diagnosed diabetes mellitus) - It is uncertain (at this time) if this is adult onset Type I or Type II diabetes-- but the treatment at this time does not change - you are being sent home on an insulin regimen Lantus 60 units twice a day NovoLog 1 unit per every 5 carbs consumed - you had been started on TriCor due to elevated triglycerides - you have been started on lisinopril for elevated blood pressure. This will also help protect your kidneys in the setting of diabetes mellitus - you need to monitor blood sugars very closely (before each meal and before bed) - follow -up with PCP to determine need for continued up titration of insulin regimen - you have been tested to help differentiate between type 1 diabetes mellitus and type II. Based on these results, may consider addition of Metformin or other oral antihyperglycemic's in addition to insulin - would strongly advise dietary and lifestyle changes (low carbohydrate, low-fat diet and initiation of exercise/weight loss) - follow-up with PCP within 7 to 10 days - Watch closely for signs and symptoms of low blood sugar (dizziness/lightheadedness, nausea, shakiness, sweating). In the setting of a low blood sugar (<70)advise eating 15grams of carbohydrates and repeating your blood sugar in 15 minutes - you will need to have follow-up lab data (at the discretion of PCP) - return to the ED for any new or worsening symptoms Pending Studies at Discharge: Yes Studies:: islet-cell antibody, Anti-RAEGAN antibody, Anti-IA2 antibody Stand-Alone Forms: My [facility] [place], Smoking Cessation Medications and DC Order Prescriptions: New (DME) OneTouch Verio test strips Strip See Rx Instructions .Route Qty: 100 RF: 5 (DME) lancets [OneTouch Delica Lancets] 30 gauge misc See Rx Instructions .Route Qty: 200 RF: 5 lisinopril 10 mg Tablet 10 mg PO QAM Qty: 30 RF: 1 (DME) pen needle, diabetic [Pen Needle] 32 gauge x 5/32" needle See Rx Instructions .Route Qty: 100 RF: 1 fenofibrate nanocrystallized [Tricor] 145 mg tablet 145 mg PO DAILY Qty: 30 RF: 0 alcohol swabs [Alcohol Pads] Pads, Medicated 1 pad topical DIRECTED Qty: 100 RF: 0 Lantus Solostar U-100 Insulin 100 unit/mL (3 mL) insulin pen 60 unit subcut BID Qty: 15 RF: 0 Humalog KwikPen Insulin 200 unit/mL (3 mL) insulin pen 1 unit subcut DIRECTED Qty: 6 RF: 0 Discharge Orders: Discharge Order (Routine); Ordered 04/20/21 Ordered By: Kelly Chester/Other Patient Handouts: Triglycerides, Low-Fat Cooking Tips, What Is High Blood Pressure?, Managing Diabetes: The A1C Test, Ketoacidosis Ch, ED Diet, Low Fat, ED Protein in the Urine (Proteinuria), ED Low-Cholesterol Diet Admission Data Admit Date/Time: 04/15/21 21:27 Attending Provider: Ward Shultz Admit Provider: Jaci Palomino Primary Care Provider: PCP,NO Other Interventions: Discharge Summary Assessment (RN) Last Done: 04/20/21 13:50 Supervising Physician Co-Signing Physician Notes I supervised Kelly Holden PA-C on the care of this patient. I interviewed and examined the patient independently of her. The plan is as written in her note except for any following changes/exceptions: None Doing well today. Discharged with good insulin teaching and regimen. Coding Level of Care Code D/C DAY MANAGEMENT >30 MINS Diagnoses Hypertriglyceridemia E78.1 DKA (diabetic ketoacidosis) E11.10 HTN (hypertension) I10 Hypokalemia E87.6 Transaminitis R74.01
[2021-04-20] MEDS ORDERED: INSULIN GLARGINE SOLOSTAR 100 UNITS/ML 3 ML PEN SC SCH (21:00)
[2021-04-21] MEDS ORDERED: INSULIN ASPART 100 UNITS/ML VIAL SC ONE (02:00)
[2021-04-30 08:12] LABS: Glutamic Acid Decarboxylase 65 <5 IU/mL (<5)
== END 2021-04-20 15:39 | disposition home or self-care (01) | DRG 638 ==
LOC: ED 16:31 → SUATTDRO 21:27 → MERGE 21:27 → EDINP 21:27 → 2N 04-16 00:09 → 3N 04-17